=== PATIENT | female | born 1940 | race Caucasian/White ===

== ENCOUNTER 2017-01-05 18:02 | Inpatient (IN) | payer MEDICARE, BC ==
[2017-01-05] VITALS (7 sets, daily range): BP systolic 139–186; BP diastolic 65–81; PULSE 71–90; RESP 12–20; TEMP 97.4; O2SAT 96–99
[~2017-01-05] VITALS: Ht 157.5 cm; Wt 55.8 kg
[2017-01-05] MEDS ORDERED: LEVO.125 PO (18:26)
[2017-01-05] MEDS ORDERED: SODIUM CHLORIDE 0.9% FLUSH 10 ML FLUSH IVF PRN (18:45)
--- NOTE | 2017-01-05 18:53 | PD ---
HPI Chief Complaint: Neuro Symptoms/ Deficits Time Seen by Provider: 18:39 Travel History International Travel<30 days: No Contact w/Intl Traveler<30days: No Traveled to known affect area: No History of Present Illness HPI This is a 76-year-old female with history of renal cancer, who reports she is in remission, who presents here from [place] yesterday with complaints of left eye pain and droopy eyelid. Patient also reports weakness in her bilateral upper and lower extremities. The patient states the symptoms started yesterday when she was on the plane. She reports previous history of left lower extremity DVT. She states she has pain in her left lower extremity like she did when she had her DVT. She denies any chest pain, chest pressure. No abdominal pain, nausea vomiting. She is here with her friends from [place] who report that she was in pain all night. There are no other complaints time my examination. PFSH Past Medical History Cancer: Yes (KIDNEY) Chemotherapy: Yes Diminished Hearing: No Deep Vein Thrombosis: Yes (LEFT LEG BLOOD CLOT) Thyroid Disease: Yes : 4 Para: 4 Past Surgical History Eye Surgery: Yes (CATARACTS REMOVED) Oral Surgery: Yes (TEETH REMOVED) Other Surgery: Yes (RIGHT CHEST PORT) Social History Alcohol Use: Yes (OCCASSIONAL) Tobacco Use: No Substance Use: No Allergies-Medications (Allergen,Severity, Reaction): Coded Allergies: No Known Allergies (Unverified , 01/05/17) Reported Meds & Prescriptions Reported Meds & Active Scripts Active Reported Synthroid (Levothyroxine Sodium) 125 Mcg Tab 125 Mcg PO DAILY Review of Systems Except as stated in HPI: all other systems reviewed are Neg General / Constitutional: No: Fever, Chills Eyes: Positive: Drainage (left eye), Redness, Tearing, Visual changes ( blurriness), No: Blurred Vision, Photophobia, Foreign Body Sensation, Pain HENT: No: Headaches, Neck Pain Cardiovascular: No: Chest Pain or Discomfort, Palpitations Respiratory: No: Cough, Shortness of Breath Gastrointestinal: No: Nausea, Vomiting, Abdominal Pain Musculoskeletal: Positive: Weakness (and realized), Pain (pain in left lower extremity. Patient reports tingling sensation in her bilateral hands and feet.) Neurologic: Positive: Weakness (generalized), Other (left upper facial droop), No: Dizziness, Headache, Change in Mentation, Sensory Disturbance Physical Exam Narrative GENERAL: Well-developed female in no acute respiratory distress. The patient has obvious left lid lag. Patient also has left upper forehead droop. SKIN: Focused skin assessment warm/dry. HEAD: Atraumatic. Normocephalic. EYES: Pupils equal and round. Left eye injection. ENT: No nasal bleeding or discharge. Mucous membranes pink and moist. NECK: Trachea midline. No JVD. Supple CARDIOVASCULAR: Regular rate and rhythm. No murmur appreciated. RESPIRATORY: No accessory muscle use. Clear to auscultation. Breath sounds equal bilaterally. GASTROINTESTINAL: Abdomen soft, non-tender, nondistended. MUSCULOSKELETAL: No obvious deformities. No clubbing. No cyanosis. No edema. Subjective left calf tenderness. I do not appreciate any swelling. I do not appreciate any palpable cords. NEUROLOGICAL: Awake and alert. Left upper forehead droop and left eye droop. Motor grossly within normal limits. Normal speech. PSYCHIATRIC: Appropriate mood and affect; insight and judgment normal. Data Data Last Documented VS Vital Signs Date Time Temp Pulse Resp B/P Pulse Ox O2 Delivery O2 Flow Rate FiO2 01/05/17 18:32 75 12 186/81 97 Room Air 01/05/17 18:03 97.4 Orders Electrocardiogram (01/05/17 ) Complete Blood Count With Diff (01/05/17 18:39) Comprehensive Metabolic Panel (01/05/17 18:39) Urinalysis - C+S If Indicated (01/05/17 18:39) Chest, Single Ap (01/05/17 18:39) Ecg Monitoring (01/05/17 18:39) Iv Access Insert/Monitor (01/05/17 18:39) Oximetry (01/05/17 18:39) Sodium Chloride 0.9% Flush (Ns Flush) (01/05/17 18:45) Us Leg Venous Doppler (01/05/17 18:39) Ct Brain W/O Iv Contrast(Rout) (01/05/17 18:39) MDM Medical Decision Making Medical Screen Exam Complete: Yes Emergency Medical Condition: Yes Differential Diagnosis CVA versus Lindsey's palsy versus conjunctivitis versus left lower extremity DVT. Narrative Course 76-year-old female with history of renal cancer that she reportedly in remission , presents with left sided upper facial droop. Patient also has pain and tingling in her extremities. She also reports worsening pain in her left calf. Patient has a history of previous DVT in that lower extremity. CT scan, labs , ultrasound are all pending at this time. The patient will be signed out to Dr. Ebenezer Winters, physician replacing this physician, who will make the appropriate disposition. Diagnosis Primary Impression: left sided upper facial droop Additional Impressions: Left leg pain history of renal cancer Crow Corrales MD January 05, 2017 18:53
[2017-01-05 19:19] LABS: AUTOMATED NEUTROPHIL # 2.6 TH/MM3 (1.8-7.7); BASOPHIL % 0.6 % (0.0-2.0); EOSINOPHIL % 0.4 % (0.0-4.0); HEMATOCRIT 27.6 % (35.0-46.0); LYMPH % 7.6 % (9.0-44.0); LYMPHOCYTE # 0.2 TH/MM3 (1.0-4.8); MEAN CELL VOLUME 110.3 FL (80.0-100.0); MEAN CORPUSCULAR HEMOGLOBIN 37.2 PG (27.0-34.0); MEAN CORPUSCULAR HGB CONC 33.7 % (32.0-36.0); MONO % 11.8 % (0.0-8.0); NEUT % 79.6 % (16.0-70.0); RED CELL DISTRIBUTION WIDTH 24.2 % (11.6-17.2); WHITE BLOOD COUNT 3.3 TH/MM3 (4.0-11.0)
--- NOTE | 2017-01-05 19:24 | RADRPT ---
EXAM DATE/TIME: 01/05/2017 19:02 [facility] COMPARISON: No previous studies available for comparison. INDICATIONS : Left eye droop. RADIATION DOSE: 35.68 CTDIvol (mGy) MEDICAL HISTORY : Deep venous thrombosis. Renal carcinoma SURGICAL HISTORY : None. ENCOUNTER: Initial ACUITY: 1 day PAIN SCALE: 0/10 LOCATION: cranial TECHNIQUE: Multiple contiguous axial images were obtained of the head. Using automated exposure control and adj ustment of the mA and/or kV according to patient size, radiation dose was kept as low as reasonably a chievable to obtain optimal diagnostic quality images. FINDINGS: CEREBRUM: Atrophy. The ventricles are normal for age. No evidence of midline shift, mass lesion, hemorrhage or acute infarction. No extra-axial fluid collections are seen. POSTERIOR FOSSA: The cerebellum and brainstem are intact. The 4th ventricle is midline. The cerebellopontine angle i s unremarkable. EXTRACRANIAL: The visualized portion of the orbits is intact. SKULL: The calvaria is intact. No evidence of skull fracture. CONCLUSION: No acute disease. Tyrone Alarcon Jr., MD on January 05, 2017 at 19:22 Board Certified Radiologist. This report was verified electronically.
[2017-01-05 19:26] LABS: HEMO FLAGS AUTO DIFF
--- NOTE | 2017-01-05 19:27 | RADRPT ---
EXAM DATE/TIME: 01/05/2017 19:12 [facility] COMPARISON: No previous studies available for comparison. INDICATIONS : Chest discomfort, left facial droop today MEDICAL HISTORY : Renal cell carcinoma. SURGICAL HISTORY : Infusaport ENCOUNTER: Initial ACUITY: 1 day PAIN SCORE: 0/10 LOCATION: Bilateral chest FINDINGS: A single view of the chest demonstrates the lungs to be symmetrically aerated without evidence of mas s, infiltrate or effusion. The cardiomediastinal contours are unremarkable. Osseous structures are intact. A Port-A-Cath overlies the right chest. CONCLUSION: No acute disease. Tyrone Alarcon Jr., MD on January 05, 2017 at 19:25 Board Certified Radiologist. This report was verified electronically.
[2017-01-05 19:56] LABS: PLATELET COUNT 75 TH/MM3 (150-450); SCAN/DIFF AUTO DIFF CONFIRMED
[2017-01-05 19:58] LABS: ALKALINE PHOSPHATASE 86 U/L (45-117); ALT (GPT) 22 U/L (10-53); ANION GAP 9 MEQ/L (5-15); AST (GOT) 31 U/L (15-37); BICARBONATE 26.3 MEQ/L (21.0-32.0); BLOOD UREA NITROGEN 12 MG/DL (7-18); CHLORIDE 104 MEQ/L (98-107); GLOMERULAR FILTRATION RATE 97 ML/MIN (>89); POTASSIUM 3.6 MEQ/L (3.5-5.1); SODIUM (NA) 139 MEQ/L (136-145); TOTAL BILIRUBIN ADULT 0.8 MG/DL (0.2-1.0)
--- NOTE | 2017-01-05 20:54 | RADRPT ---
EXAM DATE/TIME: 01/05/2017 20:20 [facility] COMPARISON: No previous studies available for comparison. INDICATIONS : Left leg edema. MEDICAL HISTORY : . Deep venous thrombosis. Thyroid disease. Renal carcinoma. Chemotherapy. SURGICAL HISTORY : Right chest port. ENCOUNTER: Initial ACUITY: 1 day PAIN SCORE: 0/10 LOCATION: Left leg. TECHNIQUE: Venous ultrasound of the leg was performed from the inguinal ligament to the proximal calf. Real-mik e, color Doppler and spectral tracing, compression and augmentation techniques were used. FINDINGS: There is normal compressibility of the deep venous system from the inguinal region to the proximal ca lf. No echogenic clot is seen in the lumen of the common femoral, femoral, popliteal, and posterior tibial veins. There is a normal response of the venous system to proximal and distal augmentation an d respiration. Within the popliteal fossa there is a 4.1 x 1.4 x 0.5 cm cystic structure. It is simple in appearance . CONCLUSION: 1. No DVT. 2. 4 cm Infante's cyst. Tyrone Alarcon Jr., MD on January 05, 2017 at 20:50 Board Certified Radiologist. This report was verified electronically.
--- NOTE | 2017-01-05 21:35 | PD ---
Physical Exam Time Seen by Provider: 21:[address] Corrales left this patient for me to check the ultrasound and CT scan and make a dispositionlikely admission. Data Data Last Documented VS Vital Signs Date Time Temp Pulse Resp B/P Pulse Ox O2 Delivery O2 Flow Rate FiO2 01/05/17 20:53 84 18 171/74 96 Room Air 01/05/17 18:03 97.4 Orders Electrocardiogram (01/05/17 ) Complete Blood Count With Diff (01/05/17 18:39) Comprehensive Metabolic Panel (01/05/17 18:39) Urinalysis - C+S If Indicated (01/05/17 18:39) Chest, Single Ap (01/05/17 18:39) Ecg Monitoring (01/05/17 18:39) Iv Access Insert/Monitor (01/05/17 18:39) Oximetry (01/05/17 18:39) Sodium Chloride 0.9% Flush (Ns Flush) (01/05/17 18:45) Us Leg Venous Doppler (01/05/17 18:39) Ct Brain W/O Iv Contrast(Rout) (01/05/17 18:39) Admit Order (Ed Use Only) (01/05/17 21:28) Labs Laboratory Tests Test 01/05/17 18:40 White Blood Count 3.3 TH/MM3 Red Blood Count 2.50 MIL/MM3 Hemoglobin 9.3 GM/DL Hematocrit 27.6 % Mean Corpuscular Volume 110.3 FL Mean Corpuscular Hemoglobin 37.2 PG Mean Corpuscular Hemoglobin 33.7 % Concent Red Cell Distribution Width 24.2 % Platelet Count 75 TH/MM3 Mean Platelet Volume 7.6 FL Neutrophils (%) (Auto) 79.6 % Lymphocytes (%) (Auto) 7.6 % Monocytes (%) (Auto) 11.8 % Eosinophils (%) (Auto) 0.4 % Basophils (%) (Auto) 0.6 % Neutrophils # (Auto) 2.6 TH/MM3 Lymphocytes # (Auto) 0.2 TH/MM3 Monocytes # (Auto) 0.4 TH/MM3 Eosinophils # (Auto) 0.0 TH/MM3 Basophils # (Auto) 0.0 TH/MM3 CBC Comment AUTO DIFF Differential Comment AUTO DIFF CONFIRMED Sodium Level 139 MEQ/L Potassium Level 3.6 MEQ/L Chloride Level 104 MEQ/L Carbon Dioxide Level 26.3 MEQ/L Anion Gap 9 MEQ/L Blood Urea Nitrogen 12 MG/DL Creatinine 0.60 MG/DL Estimat Glomerular Filtration 97 ML/MIN Rate Random Glucose 95 MG/DL Calcium Level 9.3 MG/DL Total Bilirubin 0.8 MG/DL Aspartate Amino Transf 31 U/L (AST/SGOT) Alanine Aminotransferase 22 U/L (ALT/SGPT) Alkaline Phosphatase 86 U/L Total Protein 5.9 GM/DL Albumin 3.4 GM/DL [facility] Medical Record Reviewed: Yes Supervised Visit with ROD: Yes Differential Diagnosis Ischemic CVA, Ilndsey's palsy, deep vein thrombosis, electrolyte disorder Narrative Course There is no evidence of deep vein thrombosis, the patient likely has an ischemic CVA. Plan: The patient will be admitted and MRI of the brain done. The patient will be admitted to Dr. Diaz. Physician Communication Physician Communication I discussed the patient with Dr. Hayward who instructed me to admit the patient to Dr. Diaz. Diagnosis Primary Impression: left sided upper facial droop Additional Impressions: Left leg pain history of renal cancer Admitting Information Admitting Physician Requests: Admit Ebenezer Winters MD January 05, 2017 21:35
--- NOTE | 2017-01-05 21:50 | HHI.HP ---
[facility] Service Family Medicine Primary Care Physician Non-Staff Admission Diagnosis ischemic CVA Diagnoses: Chief Complaint: left eye droop International Travel<30 Days: No Contact w/Intl Traveler<30days: No History of Present Illness 76 y/o female with history of renal cancer and hypothyroidism presents with left facial droop. Pt lives in [place] and was flying here to visit a friend yesterday evening. She states towards the end of the flight, she was going to read, but noticed that she had difficulty seeing. When she landed, she noticed that her left eyelid was drooping as well as her forehead. This occurred around 6 or 7 PM last night. She endorses some achiness on her left eye after moving around. But no eye pain. He can also noticed some weakness and achiness in her left arm. She's been having some left leg pain off and on, but that has been going on for a couple weeks. He also had a history of numbness/ tingling in her toes and fingers that has been going on for a couple weeks as well. She denies any problems with walking. Denies any headaches. Currently, her left eyelid is over her left eye and she states she is unable to see. If she lifts her left eyelid up, she is able to see normally. No blurry vision. No trouble with speech. History of stroke or TIA symptoms in the past. Not lose consciousness. Denies any recent illnesses, fever/chills. No history of tick exposure. Denies any history of A. fib or heart disease. Does have a history of hypothyroidism. Had some vomiting this morning after eating food, since and has not had much of an appetite has been sleeping most of the day. Does have a history of renal cancer on the right side, unsure of the name of it. She is status post 6 chemotherapy treatments, no radiation. Patient states she had just received remission status last week per (Brad España MD R1) Review of Systems Constitutional: COMPLAINS OF: Night Sweats, DENIES: Diaphoretic episodes, Fever, Chills, Dizziness Eyes: COMPLAINS OF: Eye pain, DENIES: Vision loss, Double Vision Ears, nose, mouth, throat: DENIES: Hearing loss, Vertigo, Running Nose Respiratory: DENIES: Cough, Sputum production, Shortness of breath Cardiovascular: DENIES: Chest pain, Palpitations, Syncope, Dyspnea on Exertion , Lower Extremity Edema Gastrointestinal: COMPLAINS OF: Nausea, Vomiting, DENIES: Abdominal pain, Black stools, Bloody stools, Constipation, Diarrhea, Difficulty Swallowing Genitourinary: DENIES: Urgency, Dysuria Musculoskeletal: DENIES: Joint pain, Muscle aches Integumentary: DENIES: Abnormal pigmentation, Rash Hematologic/lymphatic: DENIES: Bruising, Lymphadenopathy Immunologic/allergic: DENIES: Eczema Neurologic: COMPLAINS OF: Localized weakness, DENIES: Abnormal gait, Headache , Paresthesias, Seizures, Tremor, Poor Balance Psychiatric: DENIES: Anxiety, Confusion, Mood changes (Brad España MD R1) Past Family Social History Past Medical History Renal cancer Hypothyroidism Past Surgical History Cataract surgery Reported Medications Reported Meds & Active Scripts Active Reported Synthroid (Levothyroxine Sodium) 125 Mcg Tab 125 Mcg PO DAILY (Brad España MD R1) Allergies: Coded Allergies: No Known Allergies (Unverified , 01/05/17) Active Ordered Medications Active Medications Sodium Chloride (NS Flush) 2 ml UNSCH PRN IVF; Start 01/05/17 at 18:45 Family History Mother-uterine cancer Father-DM Sister-lung cancer Social History [employer] job Quit 30 years ago smoking Alcohol occasionally Denies illicit drug use (Brad España MD R1) Physical Exam Vital Signs Vital Signs Date Time Temp Pulse Resp B/P Pulse Ox O2 Delivery O2 Flow Rate FiO2 01/05/17 20:53 84 18 171/74 96 Room Air 01/05/17 20:04 76 18 139/65 99 Room Air 01/05/17 18:51 97 Room Air 01/05/17 18:32 75 12 186/81 97 Room Air 01/05/17 18:03 97.4 90 20 143/69 97 Room Air Physical Exam GENERAL: This is a well-nourished, well-developed patient, in no apparent distress. SKIN: No rashes, ecchymoses or lesions. Cool and dry. HEAD: Atraumatic. Normocephalic. No temporal or scalp tenderness. EYES: Pupils equal round and reactive. Left eyelid droop over eye. Ocular movements intact. Left forehead droop. ENT: Throat without erythema, tonsillar hypertrophy or exudate. Uvula midline. Airway patent. NECK: Trachea midline. No JVD or lymphadenopathy. Supple, nontender. CARDIOVASCULAR: Regular rate and rhythm without murmurs, gallops, or rubs. RESPIRATORY: Clear to auscultation. Breath sounds equal bilaterally. No wheezes , rales, or rhonchi. GASTROINTESTINAL: Abdomen soft, non-tender, nondistended. No hepato-splenomegaly , or palpable masses. No guarding. MUSCULOSKELETAL: Extremities without clubbing, cyanosis, or edema. No joint tenderness, effusion, or edema noted. No calf tenderness. NEUROLOGICAL: Awake and alert, orientedx3. Speech fluent, no dysarthria or dysphasia. Left forehead and left eyelid droop. Otherwise, all other cranial nerves intact. No tongue deviation. 5/5 strength and sensation intact bilaterally in UE and LE. Reflexes intact. Heel to laguna normal. Short term memory intact. No neglect. Laboratory Laboratory Tests Test 01/05/17 18:40 White Blood Count 3.3 Red Blood Count 2.50 Hemoglobin 9.3 Hematocrit 27.6 Mean Corpuscular Volume 110.3 Mean Corpuscular Hemoglobin 37.2 Mean Corpuscular Hemoglobin 33.7 Concent Red Cell Distribution Width 24.2 Platelet Count 75 Mean Platelet Volume 7.6 Neutrophils (%) (Auto) 79.6 Lymphocytes (%) (Auto) 7.6 Monocytes (%) (Auto) 11.8 Eosinophils (%) (Auto) 0.4 Basophils (%) (Auto) 0.6 Neutrophils # (Auto) 2.6 Lymphocytes # (Auto) 0.2 Monocytes # (Auto) 0.4 Eosinophils # (Auto) 0.0 Basophils # (Auto) 0.0 CBC Comment AUTO DIFF Differential Comment AUTO DIFF CONFIRMED Sodium Level 139 Potassium Level 3.6 Chloride Level 104 Carbon Dioxide Level 26.3 Anion Gap 9 Blood Urea Nitrogen 12 Creatinine 0.60 Estimat Glomerular Filtration 97 Rate Random Glucose 95 Calcium Level 9.3 Total Bilirubin 0.8 Aspartate Amino Transf 31 (AST/SGOT) Alanine Aminotransferase 22 (ALT/SGPT) Alkaline Phosphatase 86 Total Protein 5.9 Albumin 3.4 (Brad España MD R1) Result Diagram: 01/05/17183901/05/171839 Imaging Last Impressions Lower Extremity Ultrasound 01/05/17 183 Signed Impressions: Service Date/Time: Thursday, January 05, 2017 20:20 - CONCLUSION: 1. No DVT. 2. 4 cm Infante's cyst. Tyrone Alarcon Jr., MD Head CT 01/05/171838 Signed Impressions: Service Date/Time: Thursday, January 05, 2017 19:02 - CONCLUSION: No acute disease. Tyrone Alarcon Jr., MD Chest X-Ray 01/05/171838 Signed Impressions: Service Date/Time: Thursday, January 05, 2017 19:12 - CONCLUSION: No acute disease. Tyrone Alarcon Jr., MD (Brad España MD R1) Assessment and Plan Assessment and Plan 76 y/o female with history of renal cancer presents with left facial droop. Possible ischemic stroke vs Lindsey's palsy. Will admit for stroke workup. Code Status Full Discussed Condition With Dr. Hayward (Brad España MD R1) Attending Attestation THIS CASE WAS DISCUSSED WITH THE RESIDENT PHYSICIANS. I HAVE REVIEWED THE RECORD AND AGREE WITH THE ABOVE NOTE AND PLAN OF CARE WAS DISCUSSED. I HAVE AUTHORIZED THE ORDER FOR ADMISSION TO AN IN-PATIENT STATUS. (Marito Diaz MD) Problem List: (1) Facial droop Status: Acute Plan: Symptoms first began over 24 hours ago. Vascular risk factors include age , history of smoking, cancer. DDx: Ischemic CVA, Lindsey's palsy, metabolic abnormality, metastasis Pertinant PE findings include: Left forehead and eyelid droop. Otherwise, cranial nerves intact. Strength and sensation is equal bilaterally CT was negative for bleeding. Lower extremity ultrasound: Negative for DVT CXR: Acute disease -MRI brain stat to r/o ischemic stroke. -2D ECHO orderd for the AM to look for potential wall vegetations. -Start Aspirin 325mg daily -Start atorvastatin daily. -Neuro checks q4 hrs. -Telemetry -HOB flat for 12 hrs -Bedrest with fall precautions. -Consult neurology, appreciate recs -Consult PT -If pt passes bedside swallow, will allow for heart healthy diet. -ACS rule-out with trending troponins/EKGs (2) Renal cancer Status: Acute Plan: History of right-sided renal cancer. Unsure of pathology. Patient is status post 6 chemotherapy treatments. Patient states she wishes notified of her remission last week. CBC abnormalities most likely related to chemotherapy. -Continue to monitor -CBC in am (3) FEN Status: Acute Plan: Fluids: none Electrolytes: wnl, continue to monitor Nutrition: NPO until after swallow study DVT ppx: lovenox Hypothyroidism - continue Synthroid. TSH pending (Brad España MD R1) Physician Certification 2 Midnight Certification Type: Admission for Inpatient Services Order for Inpatient Services The services are ordered in accordance with Medicare regulations or non- Medicare payer requirements, as applicable. In the case of services not specified as inpatient-only, they are appropriately provided as inpatient services in accordance with the 2-midnight benchmark. Estimated LOS (days): 2 days is the estimated time the patient will need to remain in the hospital, assuming treatment plan goals are met and no additional complications. Post-Hospital Plan: Home (Brad España MD R1) Problem Qualifiers (1) Renal cancer: Qualified Code: C64.1 - Renal cancer, right Brad España MD R1 January 05, 2017 21:50 Marito Diaz MD January 06, 2017 14:10
[2017-01-05] MEDS ORDERED: SODIUM CHLORIDE 0.9% FLUSH 5 ML FLUSH IV FLUSH PRN (22:15)
[2017-01-05] MEDS ORDERED: GLUCAGON 1 MG/ML VIAL OTHER PRN (22:15)
[2017-01-05] MEDS ORDERED: DEXTROSE 50% IN WATER 50 ML VIAL(D50) IV PUSH PRN (22:15)
[2017-01-05] MEDS ORDERED: ACETAMINOPHEN 325 MG TAB PO PRN (22:30)
[2017-01-05] MEDS ORDERED: ONDANSETRON HCL 4 MG/2 ML VIAL IV PRN (22:30)
[2017-01-05] MEDS ORDERED: ENOXAPARIN SODIUM 40 MG/0.4 ML SYRINGE SQ SCH (23:00)
--- NOTE | 2017-01-05 23:37 | RADRPT ---
EXAM DATE/TIME: 01/05/2017 22:41 [facility] COMPARISON: No previous studies available for comparison. INDICATIONS : Cerebrovascular accident. MEDICAL HISTORY : Deep venous thrombosis. . Thyroid disease. Renal carcinoma. SURGICAL HISTORY : Right chest port. Cataract removal. ENCOUNTER: Initial ACUITY: 1 day PAIN SCORE: 4/10 LOCATION: Bilateral neck PEAK SYSTOLIC VELOCITIES (cm/sec): ICA/CCA RATIO: Right: 1.4 Left: 1.1 ICA: Right: 158 Left: 108 CCA: Right: 111 Left: 99 ECA: Right: 94 Left: 110 VERTEBRAL: Right: 86 antegrade Left: 55 antegrade Elevated flow velocities and ICA/CCA ratios have been found to correlate with increased degrees of vessel stenosis, calculated as percentage of diameter relative to a normal segment of distal ICA/CCA FINDINGS: RIGHT CAROTID: No significant stenosis is visualized. The waveforms are within normal limits. LEFT CAROTID: No significant stenosis is visualized. The waveforms are within normal limits. VERTEBRAL ARTERIES: Antegrade flow is seen in both vertebral arteries. MISCELLANEOUS: None. CONCLUSION: Normal examination. Cm Lopez MD on January 05, 2017 at 23:36 Board Certified Radiologist. This report was verified electronically.
[2017-01-05] MEDS ORDERED: GADODIAMIDE PF 287 MG/ML 5 ML VIAL (for RAD MRI) IV ONE (23:59)
[2017-01-06] VITALS (9 sets, daily range): BP systolic 165–189; BP diastolic 77–82; PULSE 73–84; RESP 18–22; TEMP 96.2–98.3; O2SAT 96–100
--- NOTE | 2017-01-06 00:16 | RADRPT ---
EXAM DATE/TIME: 01/05/2017 23:32 [facility] COMPARISON: No previous studies available for comparison. INDICATIONS : CVA. Left facial droop. CONTRAST: 12 cc Omniscan (gadodiamide) IV MEDICAL HISTORY : Carcinoma, renal. SURGICAL HISTORY : IVC Filter placement. Port. Cataracts. ENCOUNTER: Subsequent ACUITY: 2 day PAIN SCORE: 3/10 LOCATION: cranial TECHNIQUE: Multiplanar, multisequence MRI of the brain was performed both prior to and following the administrat ion of paramagnetic contrast. FINDINGS: CEREBRUM: The ventricles are normal for age. No evidence of midline shift, mass lesion, hemorrhage or acute in farction. No extraaxial fluid collections are seen. The pituitary gland and suprasellar cistern are normal in configuration. WHITE MATTER: Mild increased signal in periventricular white matter. No evidence of an acute stroke POSTERIOR FOSSA: The cerebellum and brainstem are intact. The 4th ventricle is midline. The cerebellopontine angle is unremarkable. The cerebellar tonsils are normal in position. DIFFUSION IMAGING: No focal areas of restricted diffusion are seen. No evidence of acute infarction. EXTRACRANIAL: The visualized portions of the orbits and paranasal sinuses are unremarkable. POST-CONTRAST: No abnormal areas of parenchymal or dural enhancement. No evidence of blood-brain barrier breakdown. CONCLUSION: Mild atrophic change. No evidence of acute stroke, mass, mass effect or evidence of any hemorrhage. The diffusion weighted sequences are normal i.e. no acute stroke Cm Lopez MD on January 06, 2017 at 0:13 Board Certified Radiologist. This report was verified electronically.
[2017-01-06 02:28] LABS: APTT (PATIENT) 27.9 SEC (24.3-30.1)
[2017-01-06 03:02] LABS: BACTERIA, URINE OCC /hpf; BLOOD, URINE NEG (NEG); COMMENT (UR) CATH-CULTURE IND; CULTURE IF INDICATED CATH CULTURE IND; GLUCOSE,URINE NEG (NEG); KETONE, URINE 40 mg/dL (NEG); NITRITE,URINE NEG (NEG); PH, URINE 6.5 (5.0-8.5); URINE COLOR YELLOW (YELLW/STRAW)
[2017-01-06] MEDS: LEVOTHYROXINE SODIUM 125 MCG TAB PO SCH (06:01)
[2017-01-06] MEDS: INSULIN ASPART SUPPLEMENTAL SCALE SQ SCH ×4 (06:01→20:49)
--- NOTE | 2017-01-06 08:04 | HHI.FPPN ---
Subjective Remarks FM Attending Note: Patient seen and examined. S: Chart and all resident physician notes reviewed. In summary this is a 76 year old female who was admitted with an admission diagnosis of possible Cva. This patient has renal cell carcinoma and just completed a treatment course of chemotherapy. To celebrate she was in the process of flying to [place] to visit a friend. While on the plane she started noticing some drooping of the eyelid on her left eye. When she got off the plane she notes some difficulty carrying luggage in her left hand although did not have complete weakness. Also noted some slight unsteadiness on her left leg. This patient is right handed. This morning her symptoms are persisting but no other changes have been noted. No headache has been noted. No previous vascular disease has been noted. Objective Vitals Vital Signs Date Time Temp Pulse Resp B/P Pulse Ox O2 Delivery O2 Flow Rate FiO2 01/06/17 04:00 97.1 75 22 167/77 97 01/06/17 00:30 97.7 73 18 177/77 98 01/05/17 23:02 71 18 161/71 97 Room Air 01/05/17 21:46 77 18 169/73 98 Room Air 01/05/17 20:53 84 18 171/74 96 Room Air 01/05/17 20:04 76 18 139/65 99 Room Air 01/05/17 18:51 97 Room Air 01/05/17 18:32 75 12 186/81 97 Room Air 01/05/17 18:03 97.4 90 20 143/69 97 Room Air I/O 01/05/17 01/05/17 01/05/17 01/06/17 01/06/17 01/06/17 07:00 15:00 23:00 07:00 15:00 23:00 Intake Total 690 ml Balance 690 ml Intake Oral 690 ml # Voids 2 # Bowel Movements 0 Result Diagram: 01/05/17 1840 01/05/17 1840 Other Results Item Value Date Time Erythrocyte Sedimentation Rate 21 mm/hr 01/06/17 0815 Troponin I 0.24 NG/ML H 01/06/17 0815 Troponin I 0.22 NG/ML H 01/06/17 0156 Triglycerides Level 81 MG/DL 01/06/17 0815 Cholesterol Level 176 MG/DL 01/06/17 0815 LDL Cholesterol 93 MG/DL 01/06/17 0815 HDL Cholesterol 66.9 MG/DL H 01/06/17 0815 Cholesterol/HDL Ratio 2.63 RATIO 01/06/17 0815 Thyroid Stimulating Hormone 3rd Gen 1.580 uIU/ML 01/06/17 0815 Total Protein 5.9 GM/DL L 01/05/17 1840 Albumin 3.4 GM/DL 01/05/17 1840 Urine Specific [place] 1.017 01/06/17 0230 Urine Ketones 40 mg/dL H 01/06/17 0230 Urine Nitrite NEG 01/06/17 0230 Urine Leukocyte Esterase NEG 01/06/17 0230 EKG review is normal. Imaging Last 48 hours Impressions Head Magnetic Resonance Angiography 01/06/17 0948 Signed Impressions: Service Date/Time: Friday, January 06, 2017 10:37 - CONCLUSION: No acute intracranial vascular abnormality is identified. Benji Rogers MD Cervical Spine MRI 01/06/17 0000 Signed Impressions: Service Date/Time: Friday, January 06, 2017 10:37 - CONCLUSION: Mild degenerative change of the cervical spine with degenerative disc disease at C3-C4 through C6-C7. However, no spinal canal stenosis is visualized. There is mild right neural foraminal narrowing at C4-C5. Benji Rogers MD Brain MRI 01/05/17 2228 Signed Impressions: Service Date/Time: Thursday, January 05, 2017 23:32 - CONCLUSION: Mild atrophic change. No evidence of acute stroke, mass, mass effect or evidence of any hemorrhage. The diffusion weighted sequences are normal i.e. no acute stroke Cm Lopez MD Lower Extremity Ultrasound 01/05/171838 Signed Impressions: Service Date/Time: Thursday, January 05, 2017 20:20 - CONCLUSION: 1. No DVT. 2. 4 cm Infante's cyst. Tyrone Alarcon Jr., MD Head CT 01/05/171838 Signed Impressions: Service Date/Time: Thursday, January 05, 2017 19:02 - CONCLUSION: No acute disease. Tyrone Alarcon Jr., MD Chest X-Ray 01/05/171838 Signed Impressions: Service Date/Time: Thursday, January 05, 2017 19:12 - CONCLUSION: No acute disease. Tyrone Alarcon Jr., MD Carotid Artery Ultrasound 01/05/17 0000 Signed Impressions: Service Date/Time: Thursday, January 05, 2017 22:41 - CONCLUSION: Normal examination. Cm Lopez MD Objective Remarks O. CONSTITUTIONAL/GEN: normally nourished, in NAD. EYES: conjunctiva normal, PERRLA, EOMI. ENT: Mouth and pharynx normal. NECK: thyroid midline, carotids symmetrical. LUNGS: clear A-P, respiratory effort is normal. CARDIOVASCULAR: RR without murmur or gallop. No significant edema. GI/ABD: soft without masses, without organomegaly. NEURO: weakness of the left orbicularis oculi muscle. Some mild weakness of the left forehead, but not a complete palsy. No motor weakness of left arm or leg noted on bedside testing. SKIN: color normal, no rashes noted. Alopecia. HEME/LYMPH: no bruising, petechia or significant adenopathy MUSC: back is normal in appearance. Extremities are normal in appearance. PSYCH/MENTAL STATUS: Alert and oriented x 3. A/P Assessment and Plan 76 y/o female with history of renal cancer presents with left facial droop. Possible ischemic stroke vs Lindsey's palsy. Will admit for stroke workup. Problem List: (1) Facial droop Status: Acute Plan: Symptoms first began over 24 hours ago. Vascular risk factors include age , history of smoking, cancer. DDx: Ischemic CVA, Lindsey's palsy, metabolic abnormality, metastasis Pertinant PE findings include: Left forehead and eyelid droop. Otherwise, cranial nerves intact. Strength and sensation is equal bilaterally CT was negative for bleeding. Lower extremity ultrasound: Negative for DVT CXR: Acute disease -MRI brain stat to r/o ischemic stroke. -2D ECHO orderd for the AM to look for potential wall vegetations. -Start Aspirin 325mg daily -Start atorvastatin daily. -Neuro checks q4 hrs. -Telemetry -HOB flat for 12 hrs -Bedrest with fall precautions. -Consult neurology, appreciate recs -Consult PT -If pt passes bedside swallow, will allow for heart healthy diet. -ACS rule-out with trending troponins/EKGs 01/06/17 Left facial weakness of uncertain etiology. The findings are atypical. Neurology evaluation is pending. (2) Renal cancer Status: Acute Plan: History of right-sided renal cancer. Unsure of pathology. Patient is status post 6 chemotherapy treatments. Patient states she wishes notified of her remission last week. CBC abnormalities most likely related to chemotherapy. -Continue to monitor -CBC in am (3) FEN Status: Acute Plan: Fluids: none Electrolytes: wnl, continue to monitor Nutrition: NPO until after swallow study DVT ppx: lovenox Hypothyroidism - continue Synthroid. TSH pending Problem Qualifiers (1) Renal cancer: Qualified Code: C64.1 - Renal cancer, right Marito Diaz MD January 06, 2017 08:04
[2017-01-06 08:52] LABS: AUTOMATED NEUTROPHIL # 2.7 TH/MM3 (1.8-7.7); BASOPHIL % 0.2 % (0.0-2.0); EOSINOPHIL % 0.2 % (0.0-4.0); HEMATOCRIT 25.8 % (35.0-46.0); LYMPH % 6.9 % (9.0-44.0); LYMPHOCYTE # 0.2 TH/MM3 (1.0-4.8); MEAN CELL VOLUME 109.8 FL (80.0-100.0); MEAN CORPUSCULAR HEMOGLOBIN 36.7 PG (27.0-34.0); MEAN CORPUSCULAR HGB CONC 33.5 % (32.0-36.0); NEUT % 78.7 % (16.0-70.0); PLATELET COUNT 68 TH/MM3 (150-450); RED BLOOD COUNT 2.35 MIL/MM3 (4.00-5.30); RED CELL DISTRIBUTION WIDTH 23.3 % (11.6-17.2); WHITE BLOOD COUNT 3.4 TH/MM3 (4.0-11.0)
[2017-01-06 08:56] LABS: HEMO FLAGS AUTO DIFF
[2017-01-06] MEDS ORDERED: ASPIRIN 325 MG TAB PO SCH (09:00)
[2017-01-06] MEDS: SODIUM CHLORIDE 0.9% FLUSH 5 ML FLUSH IV FLUSH SCH ×2 (09:00→20:49)
[2017-01-06 09:14] LABS: ANION GAP 10 MEQ/L (5-15); BICARBONATE 25.8 MEQ/L (21.0-32.0); BLOOD UREA NITROGEN 13 MG/DL (7-18); CHLORIDE 103 MEQ/L (98-107); GLOMERULAR FILTRATION RATE 122 ML/MIN (>89); POTASSIUM 3.5 MEQ/L (3.5-5.1); SODIUM (NA) 139 MEQ/L (136-145)
[2017-01-06 09:19] LABS: HDL CHOLESTEROL 66.9 MG/DL (40.0-60.0)
[2017-01-06 09:39] LABS: PLATELET ESTIMATE SMEAR LOW (NORMAL); PLATELET MORPHOLOGY NORMAL (NORMAL); SCAN/DIFF AUTO DIFF CONFIRMED
[2017-01-06] MEDS ORDERED: GADODIAMIDE PF 287 MG/ML 5 ML VIAL (for RAD MRI) IV ONE (11:09)
--- NOTE | 2017-01-06 11:31 | RADRPT ---
EXAM DATE/TIME: 01/06/2017 10:37 [facility] COMPARISON: No previous studies available for comparison. INDICATIONS : Left facial droop. MEDICAL HISTORY : Carcinoma renal. SURGICAL HISTORY : IVC Filter placement. Port. Cataracts. ENCOUNTER: Initial ACUITY: 2 day PAIN SCORE: 0/10 LOCATION: Paraspinal Please note a normal MRA of the brain does not entirely exclude the possibility of a small aneurysm, nor the possibility of distal intracranial vessel disease. TECHNIQUE: 3D time of flight MRA was performed. Source images, multiplanar STS MIP, and 3D volume MIP reconstru ctions were reviewed. FINDINGS: Anterior circulation: The internal carotid arteries demonstrate no abnormality or atherosclerotic change. A1 segments and m ore distal anterior cerebral arteries are symmetric and within normal limits. The middle cerebral art ashley branches demonstrate symmetric flow related enhancement. No aneurysm or high-grade stenosis is id entified. Posterior circulation: There are patent posterior cerebral arteries bilaterally. Vertebral arteries are codominant. The basi lar artery and posterior cerebral arteries demonstrate no significant stenosis or abnormality. No ane urysm is visualized. CONCLUSION: No acute intracranial vascular abnormality is identified. Benji Rogers MD on January 06, 2017 at 11:25 Board Certified Radiologist. This report was verified electronically.
--- NOTE | 2017-01-06 11:47 | RADRPT ---
EXAM DATE/TIME: 01/06/2017 10:37 [facility] COMPARISON: No previous studies available for comparison. INDICATIONS : Left facial droop. CONTRAST: 12 cc Omniscan (gadodiamide) IV MEDICAL HISTORY : Carcinoma renal. SURGICAL HISTORY : IVC Filter placement. Port. Cataracts. ENCOUNTER: Initial ACUITY: 2 day PAIN SCORE: 0/10 LOCATION: cranial TECHNIQUE: Multiplanar, multisequence MRI examination of the cervical spine was performed. FINDINGS: VERTEBRAE: Normal vertebral body height. Bone marrow signal is within normal limits. ALIGNMENT: There is no anterolisthesis or retrolisthesis. CORD: Normal configuration and signal. POST FOSSA: The cerebellar tonsils are normal in position. POST-CONTRAST: No abnormal areas of enhancement are seen. The craniocervical junction and C1-C2 level demonstrate no abnormality. C2-C3: No disc herniation, canal stenosis, or neural foraminal stenosis. C3-C4: No disc herniation, canal stenosis, or neural foraminal stenosis. C4-C5: There is decreased disc height with endplate osteophytes anteriorly and diffuse posterior disc osteop hyte complex. There is no spinal canal stenosis. There is mild right neural foraminal narrowing. C5-C6: There is mild decreased disc height with central to left paracentral posterior disc osteophyte comple x abuts the anterior aspect of the spinal cord. No significant spinal canal stenosis or neural forami nal narrowing is present. C6-C7: There is mild decreased disc height with diffuse posterior disc osteophyte complex. No canal stenosis or neural foraminal stenosis is present. C7-T1: No disc herniation, canal stenosis, or neural foraminal stenosis. CONCLUSION: Mild degenerative change of the cervical spine with degenerative disc disease at C3-C4 through C6-C7. However, no spinal canal stenosis is visualized. There is mild right neural foraminal narrowing at C 4-C5. Benji Rogers MD on January 06, 2017 at 11:42 Board Certified Radiologist. This report was verified electronically.
--- NOTE | 2017-01-06 12:33 | MB ---
cc: ROXANNE VALDEZ DATE OF CONSULTATION: 01/06/2017. REASON FOR CONSULTATION: HISTORY OF PRESENT ILLNESS: A 76-year-old right-handed woman with a recent diagnosis in July of last year and chemotherapy since August several rounds of right kidney cancer, hypothyroidism. She does not take an aspirin a day. She has otherwise been healthy. On the of this month, she was on a plane and thought her left leg was aching. She felt like there was some weakness in the left arm and noticed that she had some droopy eye on the left side. No pain behind the ear on the left side. No change in her hearing. No major headache. She is not diabetic she tells me. She lives in [place] usually. ALLERGIES: NO KNOWN DRUG ALLERGIES. REVIEW OF SYSTEMS: Denies any hypertension, diabetes, hypercholesterolemia, myocardial infarction, CABG, stents, angioplasty, hepatic, or pulmonary disease, atrial fibrillation, coumadin, lupus, ulcer, cancer, seizure or stroke. SOCIAL HISTORY: Not a smoker. Occasional drink. Lives with her grandson. FAMILY HISTORY: Father with diabetes, positive for cancer, negative for seizure, negative for stroke. MEDICATIONS: She is currently on: 1. Lipitor. 2. Aspirin 325. 3. Lovenox. PHYSICAL EXAMINATION: VITAL SIGNS: Afebrile, 76, 19, 172/77. Blood pressures have been generally running high and has high as 186/81. NECK: There is a right carotid bruit. HEART: Regular rhythm. I do not detect a murmur. NEUROLOGICAL EXAMINATION: Her pupils are equal. The visual diaz are full. She has a left ptosis and inability to invert and also upward gaze in the left eye. Gaze to the left is normal in the left eye and extraocular movements intact in the right eye. Face is symmetric with normal sensation otherwise besides the ptosis. She can move her forehead well. Tongue was midline. There is no drift. She has normal strength in bilateral deltoids, triceps, biceps. Her FDI is weak about a 4/5, a little bit more on the left than the right. The APB is weak on the left about a 4/5, normal on the right. Finger extensors are weak bilaterally at 4/5. Lower extremity strength is normal bilaterally. Toes are downgoing bilaterally. DTRs are absent throughout. Pin prick was intact throughout including the face. Vibratory sense was diminished in the right foot only. She is not ataxic on [id number]. Speech is fluent. She is not aphasic. LABORATORY DATA: White count is 3.4, hematocrit 26, platelet count 68,000. Her urinalysis is negative. Basic metabolic profile was normal. Glucose was 85. Troponin 0.24. LDL cholesterol normal at 93. TSH normal. Coags are normal. IMAGING STUDIES: Carotid ultrasound was read as normal. Lower extremity ultrasound: no DVT. CT scan of the brain was read as negative. Chest x-ray is negative. MRI of the brain was read as normal. 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 Some white matter changes seen bilaterally. I do not see any masses around the left orbit. No infarct is seen. No definite metastasis noted. IMPRESSION: A left pupil-sparing III nerve palsy but also some weakness in bilateral finger extensors in her hands. PLAN AND RECOMMENDATIONS: 1. I have ordered an MRI of her cervical spine for the arm weakness. 2. She is not diabetic, which is a bit unusual. A carcinomatous meningitis could be considered and I think considering her recent cancer, we should do a lumbar puncture. 3. Hold her blood thinners since this is not stroke to the brain. 4. Check some additional labs. 5. Would hold her statin at this point. 6. I defer to the med team why her troponin is up. MD SEAN Ashby/RAUL /9:45 AM /12:20 PM
[2017-01-06 13:46] LABS: RHEUMATOID FACTOR TRIGGER LESS THAN 10.0 IU/ML (0.0-14.9)
[2017-01-06 13:47] LABS: ALT (GPT) 20 U/L (10-53); AST (GOT) 27 U/L (15-37)
[2017-01-06] MEDS: SODIUM CHLOR 0.9% 1000 ML INJ 1,000 ML IV SCH ×2 (14:10→23:08)
[2017-01-06 14:12] LABS: FREE T4 1.27 NG/DL (0.76-1.46)
[2017-01-06 14:24] LABS: CREATINE KINASE 40 U/L (26-192)
--- NOTE | 2017-01-06 15:47 | EKG ---
Date Performed: 01/05/2017 Time Performed: 18:20:36 PTAGE: 76 years EKG: Sinus rhythm NONSPECIFIC T-WAVE ABNORMALITY BORDERLINE ECG INTERPRETATION BASED ON A DEFAULT AGE OF 38 YEARS NO PREVIOUS TRACING DOCTOR: Zaid Martin Interpretating Date/Time 01/06/2017 15:46:23
--- NOTE | 2017-01-06 15:47 | EKG ---
Date Performed: 01/06/2017 Time Performed: 09:49:29 PTAGE: 76 years EKG: Sinus rhythm NORMAL ECG Since PREVIOUS TRACING 01/05/2017, ST changes have improved. PREVIOUS TRACIN01/05/2017 18.2 0 DOCTOR: Zaid Martin Interpretating Date/Time 01/06/2017 15:46:49
[2017-01-06] MEDS ORDERED: oxyCODONE/ACETAMINOPHEN 5 MG/325 MG TAB PO PRN (18:45)
[2017-01-06] MEDS ORDERED: ATORVASTATIN 10 MG TAB PO SCH (21:00)
[2017-01-07] VITALS (8 sets, daily range): BP systolic 157–196; BP diastolic 74–95; PULSE 68–99; RESP 16–20; TEMP 95.7–98.8; O2SAT 96–99
[2017-01-07] MEDS: LEVOTHYROXINE SODIUM 125 MCG TAB PO SCH (05:51)
[2017-01-07] MEDS: INSULIN ASPART SUPPLEMENTAL SCALE SQ SCH ×4 (06:34→21:00)
[2017-01-07 08:30] LABS: HEMATOCRIT 25.5 % (35.0-46.0); MEAN CELL VOLUME 109.3 FL (80.0-100.0); MEAN CORPUSCULAR HEMOGLOBIN 37.3 PG (27.0-34.0); MEAN CORPUSCULAR HGB CONC 34.1 % (32.0-36.0); PLATELET COUNT 65 TH/MM3 (150-450); RED BLOOD COUNT 2.34 MIL/MM3 (4.00-5.30)
[2017-01-07 08:32] LABS: REVIEW FLAG FINAL
[2017-01-07 08:52] LABS: BICARBONATE 27.8 MEQ/L (21.0-32.0); POTASSIUM 3.5 MEQ/L (3.5-5.1)
[2017-01-07] MEDS: SODIUM CHLORIDE 0.9% FLUSH 5 ML FLUSH IV FLUSH SCH ×2 (09:00→21:00)
--- NOTE | 2017-01-07 09:22 | HHI.FPPN ---
Subjective Remarks Patient seen and examined this morning. Temperature 95.8, pulse 83, respiratory rate 16, blood pressure 178/84, pulse ox 98. Patient reports that she's doing okay this morning though she still feels weak. Explained her that we are waiting for neurology's final recommendations. MRI of the spine showed mild degenerative changes, but no spinal stenosis. Neurology is considering doing an LP, explained this to the patient that she will further discuss it with neurology. Endorses: Extremities weakness Denies: Fever, chills, nausea, vomiting, shortness of breath, chest pain, headache, abdominal pain, calf pain (Toi Hayward MD R2) Objective Vitals Vital Signs Date Time Temp Pulse Resp B/P Pulse Ox O2 Delivery O2 Flow Rate FiO2 01/07/17 08:00 95.8 83 16 178/84 98 01/07/17 04:00 96.7 76 20 157/95 98 01/07/17 03:47 70 01/07/17 00:00 95.7 76 18 165/79 98 01/06/17 22:07 98 01/06/17 20:00 98.3 81 20 165/82 98 01/06/17 18:42 96 21 01/06/17 16:14 96.7 82 22 189/81 99 01/06/17 13:22 84 01/06/17 12:40 98.0 81 21 185/81 100 I/O 01/06/17 01/06/17 01/06/17 01/07/17 01/07/17 01/07/17 07:00 15:00 23:00 07:00 15:00 23:00 Intake Total 690 ml 240 ml 240 ml 1120 ml Balance 690 ml 240 ml 240 ml 1120 ml Intake Oral 690 ml 240 ml 240 ml IV Total 1120 ml # Voids 2 3 0 # Bowel Movements 0 0 (Toi Hayward MD R2) Result Diagram: 01/07/17 0742 01/07/17 0742 Imaging Last Impressions Head Magnetic Resonance Angiography 01/06/17 0948 Signed Impressions: Service Date/Time: Friday, January 06, 2017 10:37 - CONCLUSION: No acute intracranial vascular abnormality is identified. Benji Rogers MD Cervical Spine MRI 01/06/17 0000 Signed Impressions: Service Date/Time: Friday, January 06, 2017 10:37 - CONCLUSION: Mild degenerative change of the cervical spine with degenerative disc disease at C3-C4 through C6-C7. However, no spinal canal stenosis is visualized. There is mild right neural foraminal narrowing at C4-C5. Benji Rogers MD Brain MRI 01/05/178 Signed Impressions: Service Date/Time: Thursday, January 05, 2017 23:32 - CONCLUSION: Mild atrophic change. No evidence of acute stroke, mass, mass effect or evidence of any hemorrhage. The diffusion weighted sequences are normal i.e. no acute stroke Cm Lopez MD Lower Extremity Ultrasound 01/05/171838 Signed Impressions: Service Date/Time: Thursday, January 05, 2017 20:20 - CONCLUSION: 1. No DVT. 2. 4 cm Infante's cyst. Tyrone Alarcon Jr., MD Head CT 01/05/171838 Signed Impressions: Service Date/Time: Thursday, January 05, 2017 19:02 - CONCLUSION: No acute disease. Tyrone Alarcon Jr., MD Chest X-Ray 01/05/171838 Signed Impressions: Service Date/Time: Thursday, January 05, 2017 19:12 - CONCLUSION: No acute disease. Tyrone Alarcon Jr., MD Carotid Artery Ultrasound 01/05/17 0000 Signed Impressions: Service Date/Time: Thursday, January 05, 2017 22:41 - CONCLUSION: Normal examination. Cm Lopez MD Objective Remarks O. CONSTITUTIONAL/GEN: normally nourished, in NAD. EYES: conjunctiva normal, PERRLA, EOMI. ENT: Mouth and pharynx normal. NECK: thyroid midline, carotids symmetrical. LUNGS: clear A-P, respiratory effort is normal. CARDIOVASCULAR: RR without murmur or gallop. No significant edema. GI/ABD: soft without masses, without organomegaly. NEURO: weakness of the left orbicularis oculi muscle. Some mild weakness of the left forehead, but not a complete palsy. No motor weakness of left arm or leg noted on bedside testing. SKIN: color normal, no rashes noted. Alopecia. HEME/LYMPH: no bruising, petechia or significant adenopathy MUSC: back is normal in appearance. Extremities are normal in appearance. PSYCH/MENTAL STATUS: Alert and oriented x 3. Medications and IVs Current Medications Medications (Trade) Dose Ordered Sig/Last Route Start Time Stop Time Status Last Admin (NS Flush) 2 ml BID IV FLUSH 01/06/17 09:00 01/07/17 09:00 (NS Flush) 2 ml UNSCH PRN IV FLUSH 01/05/17 22:15 (NovoLOG SUPPLEMENTAL SCALE) 1 ACHS SQ 01/06/17 07:00 (D50w (Vial) Inj) 50 ml UNSCH PRN IV PUSH 01/05/17 22:15 (Glucagon Inj) 1 mg UNSCH PRN OTHER 01/05/17 22:15 (Tylenol) 650 mg Q4H PRN PO 01/05/17 22:30 01/06/17 14:33 (Zofran Inj) 4 mg Q6H PRN IV 01/05/17 22:30 Levothyroxine Sodium 125 mcg 125 mcg DAILY@06 PO 01/06/17 06:00 01/07/17 05:51 (NS 1000 ml Inj) 1,000 ml @ 75 mls/hr [id number] IV 01/06/17 09:48 01/06/17 23:08 (Toi Hayward MD R2) A/P Assessment and Plan 76 y/o female with history of renal cancer presents with left facial droop. Possible ischemic stroke vs Lindsey's palsy. Will admit for stroke workup. wdw: Dr. Diaz Discharge Planning Pending neurology's recommendations (Toi Hayward MD R2) Attending Attestation Case reviewed and discussed with the resident team. Agree with plan of care as discussed with me and documented in the resident note. (Marito Diaz MD) Problem List: (1) Facial droop Status: Acute Plan: Symptoms first began over 24 hours ago. Vascular risk factors include age , history of smoking, cancer. DDx: Ischemic CVA, Lindsey's palsy, metabolic abnormality, metastasis Pertinant PE findings include: Left forehead and eyelid droop. Otherwise, cranial nerves intact. Strength and sensation is equal bilaterally -Neurology consulted, recommendations appreciated -Start Aspirin 325mg daily -Neuro checks q4 hrs. -Telemetry -Consult PT: No physical therapy needed outside of hospital (2) Renal cancer Status: Acute Plan: History of right-sided renal cancer. Unsure of pathology. Patient is status post 6 chemotherapy treatments. Patient states she wishes notified of her remission last week. CBC abnormalities most likely related to chemotherapy. -Continue to monitor (3) FEN Status: Acute Plan: Fluids: Adequate oral intake Electrolytes: wnl, continue to monitor Nutrition: Heart healthy diet DVT ppx: lovenox, SCDs Hypothyroidism - continue Synthroid. TSH pending (Toi Hayward MD R2) Problem Qualifiers (1) Renal cancer: Qualified Code: C64.1 - Renal cancer, right Toi Hayward MD R2 January 07, 2017 09:22 Marito Diaz MD January 08, 2017 12:21
--- NOTE | 2017-01-07 09:48 | HHI.PR ---
Subjective Remarks no new co Objective Vital Signs Date Time Temp Pulse Resp B/P Pulse Ox O2 Delivery O2 Flow Rate FiO2 01/07/17 08:00 95.8 83 16 178/84 98 01/07/17 04:00 96.7 76 20 157/95 98 01/07/17 03:47 70 01/07/17 00:00 95.7 76 18 165/79 98 01/06/17 22:07 98 01/06/17 20:00 98.3 81 20 165/82 98 01/06/17 18:42 96 21 01/06/17 16:14 96.7 82 22 189/81 99 01/06/17 13:22 84 01/06/17 12:40 98.0 81 21 185/81 100 I/O 01/06/17 01/06/17 01/06/17 01/07/17 01/07/17 01/07/17 07:00 15:00 23:00 07:00 15:00 23:00 Intake Total 690 ml 240 ml 240 ml 1120 ml Balance 690 ml 240 ml 240 ml 1120 ml Intake Oral 690 ml 240 ml 240 ml IV Total 1120 ml # Voids 2 3 0 # Bowel Movements 0 0 Result Diagram: 01/07/17 0742 01/07/17 0742 Objective Remarks more complete left 3rd nerve palsy today pupil spared still weak bilat finger ext Assessment and Plan Assessment and Plan imp left 3 nerve palsy mri c spine neg labs neg mra cow nl await LP emg needed in office after LP can dc asa 81 a day unless is positive csf Mohit Urbano MD January 07, 2017 09:47
[2017-01-07] MEDS: SODIUM CHLOR 0.9% 1000 ML INJ 1,000 ML IV SCH (12:28)
--- NOTE | 2017-01-07 17:22 | EC ---
Study Study Date:01/07/2017 STUDY CONCLUSIONS SUMMARY - Procedure narrative: Transthoracic echocardiography. Image quality was good. Scanning was performed from the parasternal, apical, and subcostal acoustic windows. - Left ventricle: The cavity size was normal. Wall thickness was normal. Systolic function was normal. The estimated ejection fraction was in the range of 50% to 55%. Wall motion was normal; there were no regional wall motion abnormalities. - Mitral valve: Mildly calcified annulus. Trace to mild regurgitation. - Tricuspid valve: Trace regurgitation. If LV function is below 40, please consider prescribing an ACEI or ARB or document rationale for non-use. PROCEDURE DATA STUDY STATUS: Elective. Procedure: Transthoracic echocardiography. Image quality was good. Scanning was performed from the parasternal, apical, and subcostal acoustic windows. Study completion: The patient tolerated the procedure well. Transthoracic echocardiography. M-mode, complete 2D, complete spectral Doppler, and color Doppler. Height: Height: 62in. Weight: Weight: 131.7lb. Body mass index: BMI: 24.1kg/m^2. Body surface area: BSA: 1.6m^2. Patient status: Inpatient. CARDIAC ANATOMY LEFT VENTRICLE: The cavity size was normal. Wall thickness was normal. Systolic function was normal. The estimated ejection fraction was in the range of 50% to 55%. Wall motion was normal; there were no regional wall motion abnormalities. AORTIC VALVE: Trileaflet; normal thickness leaflets. Doppler: Transvalvular velocity was within the normal range. There was no stenosis. No regurgitation. AORTA: Aortic root: The aortic root was normal in size. MITRAL VALVE: Mildly calcified annulus. Doppler: Transvalvular velocity was within the normal range. There was no evidence for stenosis. Trace to mild regurgitation. LEFT ATRIUM: The atrium was normal in size. RIGHT VENTRICLE: The cavity size was normal. Wall thickness was normal. PULMONIC VALVE: Doppler: Transvalvular velocity was within the normal range. There was no evidence for stenosis. No regurgitation. TRICUSPID VALVE: Structurally normal valve. Doppler: Transvalvular velocity was within the normal range. Trace regurgitation. PULMONARY ARTERY: The main pulmonary artery was normal-sized. Systolic pressure was within the normal range. RIGHT ATRIUM: The atrium was normal in size. PERICARDIUM: There was no pericardial effusion. SYSTEMIC VEINS: Inferior vena cava: The vessel was normal in size. Patient weight: 131.7lb _Ejection fraction:_ 65-75% _Fractional shortening:_ 32% up to 5Kg 5-11.5Kg 11.6-22.9Kg 23-45Kg 45-57Kg Aortic Root 7-13 <17 13-22 17-27 17-27 LA diam 6-13 <23 24-38 33-47 37-40 RVID 10-17 7-15 7-15 7-18 8-17 LVIDd 12-22 <32 24-38 33-47 37-40 LVPW 2-4 3-6 5-7 6-8 7-8 IVS 2-4 3-6 5-7 6-8 7-8 BASIC MEASUREMENTS ADULT Normal Left ventricle LV internal dimension, ED, chordal level, 48.4 mm 43-52 PLAX LV internal dimension, ES, chordal level, 37.3 mm 23-38 PLAX Fractional shortening, chordal level, PLAX *23 % >29 LV posterior wall thickness, ED 8.63 mm IVS/LVPW ratio, ED *1.32 <1.3 Ventricular septum Septal thickness, ED 11.4 mm Aortic valve Leaflet separation 19 mm 15-26 Left atrium Anterior-posterior dimension 42 mm Anterior-posterior dimension index *2.63 cm/m^2 <2.2 Right ventricle RV internal dimension, ED, PLAX 20.2 mm 19-38 BASIC MEASUREMENTS ADULT Normal Aortic valve Leaflet separation 19 mm 15-26 Aorta Root diameter, ED 29 mm 20-37 DOPPLER MEASUREMENTS ADULT Normal Mitral valve Peak E-wave velocity 48.9 cm/s Peak A-wave velocity 91.8 cm/s Peak E/A ratio 0.5 Tricuspid valve Regurgitant peak velocity 219 cm/s Peak RV-RA gradient, S 19 mm Hg Maximal regurgitant velocity 219 cm/s LEGEND: Mean values are shown as u=mean value. Asterisk (*) logan values outside specified normal range. Prepared and signed by Slim Lobato [id number]
[2017-01-08] VITALS (7 sets, daily range): BP systolic 133–188; BP diastolic 65–85; PULSE 69–80; RESP 16–22; TEMP 96.1–98.7; O2SAT 95–98
[2017-01-08] MEDS: LEVOTHYROXINE SODIUM 125 MCG TAB PO SCH (05:23)
[2017-01-08] MEDS: INSULIN ASPART SUPPLEMENTAL SCALE SQ SCH ×4 (06:29→21:20)
[2017-01-08] MEDS: SODIUM CHLORIDE 0.9% FLUSH 5 ML FLUSH IV FLUSH SCH ×2 (09:00→21:00)
--- NOTE | 2017-01-08 09:01 | HHI.FPPN ---
Subjective Remarks Mrs. Solares is doing okay this morning except for left leg pain that she states is chronic and is better when she walks. She would like some pain medication to help her in the meantime. She continues to have trouble with her left eye not opening, but she can see with that eye if she manually opens up the eyelids. She states that she does not want a spinal tap procedure. She would like to leave the hospital to get on with her vacation. (Isa Whatley MD R1) Objective Vitals Vital Signs Date Time Temp Pulse Resp B/P Pulse Ox O2 Delivery O2 Flow Rate FiO2 01/08/17 08:15 97.9 77 18 188/85 97 01/08/17 04:00 97.8 79 16 165/72 95 01/08/17 00:00 98.7 78 20 161/69 97 01/07/17 20:00 98.8 99 16 162/74 97 01/07/17 14:54 95.7 86 20 177/79 99 01/07/17 12:13 97.1 97 20 196/91 96 01/07/17 09:45 68 I/O 01/07/17 01/07/17 01/07/17 01/08/17 01/08/17 01/08/17 07:00 15:00 23:00 07:00 15:00 23:00 Intake Total 1120 ml 240 ml Output Total 600 ml Balance 1120 ml -360 ml Intake Oral 240 ml IV Total 1120 ml Output Urine Total 600 ml # Voids 1 2 (Isa Whatley MD R1) Result Diagram: 01/07/17 0742 01/07/17 0742 Imaging Last 72 hours Impressions Head Magnetic Resonance Angiography 01/06/17 0948 Signed Impressions: Service Date/Time: Friday, January 06, 2017 10:37 - CONCLUSION: No acute intracranial vascular abnormality is identified. Benji Rogers MD Cervical Spine MRI 01/06/17 0000 Signed Impressions: Service Date/Time: Friday, January 06, 2017 10:37 - CONCLUSION: Mild degenerative change of the cervical spine with degenerative disc disease at C3-C4 through C6-C7. However, no spinal canal stenosis is visualized. There is mild right neural foraminal narrowing at C4-C5. Benji Rogers MD Brain MRI 01/05/17 2228 Signed Impressions: Service Date/Time: Thursday, January 05, 2017 23:32 - CONCLUSION: Mild atrophic change. No evidence of acute stroke, mass, mass effect or evidence of any hemorrhage. The diffusion weighted sequences are normal i.e. no acute stroke Cm Lopez MD Lower Extremity Ultrasound 01/05/171838 Signed Impressions: Service Date/Time: Thursday, January 05, 2017 20:20 - CONCLUSION: 1. No DVT. 2. 4 cm Infante's cyst. Tyrone Alarcon Jr., MD Head CT 01/05/171838 Signed Impressions: Service Date/Time: Thursday, January 05, 2017 19:02 - CONCLUSION: No acute disease. Tyrone Alarcon Jr., MD Chest X-Ray 01/05/171838 Signed Impressions: Service Date/Time: Thursday, January 05, 2017 19:12 - CONCLUSION: No acute disease. Tyrone Alarcon Jr., MD Objective Remarks O. CONSTITUTIONAL/GEN: normally nourished, in NAD. EYES: conjunctiva normal, PERRLA, EOMI. ENT: Mouth and pharynx normal. NECK: thyroid midline, carotids symmetrical. LUNGS: clear A-P, respiratory effort is normal. CARDIOVASCULAR: RR without murmur or gallop. No significant edema. GI/ABD: soft without masses, without organomegaly. NEURO: weakness of the left orbicularis oculi muscle. Some mild weakness of the left forehead, but not a complete palsy. SKIN: color normal, no rashes noted. Alopecia. HEME/LYMPH: no bruising, petechia or significant adenopathy MUSC: back is normal in appearance. Extremities are normal in appearance. PSYCH/MENTAL STATUS: Alert and oriented x 3. (Isa Whatley MD R1) A/P Assessment and Plan 76 y/o female with history of renal cancer presents with left facial droop. Possible ischemic stroke vs Lindsey's palsy. Admitted for stroke workup. Neurology was consulted to assist with management. wdw: Dr. Diaz Discharge Planning Pending neurology's recommendations, possible discharge today (Isa Whatley MD R1) Attending Attestation Case reviewed and discussed with the resident team. Agree with plan of care as discussed with me and documented in the resident note. 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 Vascular risk factors include age , history of smoking, cancer. DDx: Ischemic CVA, Lindsey's palsy, metabolic abnormality, metastasis Pertinent PE findings include: Left eyelid droop, vision intact in that eye -Neurology consulted, recommendations appreciated - plan for LP in hospital and EMG in office, discharge if LP is negative -MRI C-spine negative -MRA negative -Stop aspirin due to low platelets at 65 -Neuro checks q4 hrs. -Telemetry -Consult PT: No physical therapy needed outside of hospital (2) Hypertension Status: Acute Plan: BP ranging from 161/69-188/85 in the last 24 hours Patient not on any home antihypertensive medication Vasotec 1.25 mg IV PRN SPP greater than or equal to 170 or DBP greater than or equal to 100 (3) Renal cancer Status: Acute Plan: History of right-sided renal cancer. Unsure of pathology. Patient is status post 6 chemotherapy treatments. Patient states she was notified of her remission last week. CBC abnormalities most likely related to chemotherapy. -Continue to monitor (4) FEN Status: Acute Plan: Fluids: Adequate oral intake Electrolytes: wnl, continue to monitor Nutrition: Heart healthy diet DVT ppx: lovenox, SCDs Hypothyroidism - continue Synthroid. TSH within normal limits (Isa Whatley MD R1) Problem Qualifiers (1) Renal cancer: Qualified Code: C64.1 - Renal cancer, right Isa Whatley MD R1 January 08, 2017 09:01 Marito Diaz MD January 08, 2017 12:32
[2017-01-08] MEDS: SODIUM CHLOR 0.9% 1000 ML INJ 1,000 ML IV SCH ×2 (09:41→15:08)
[2017-01-08] MEDS: oxyCODONE/ACETAMINOPHEN 5 MG/325 MG TAB PO PRN ×2 (09:45→23:55)
--- NOTE | 2017-01-08 09:53 | HHI.PR ---
Subjective Remarks no new co Objective Vital Signs Date Time Temp Pulse Resp B/P Pulse Ox O2 Delivery O2 Flow Rate FiO2 01/08/17 08:15 97.9 77 18 188/85 97 01/08/17 04:00 97.8 79 16 165/72 95 01/08/17 00:00 98.7 78 20 161/69 97 01/07/17 20:00 98.8 99 16 162/74 97 01/07/17 14:54 95.7 86 20 177/79 99 01/07/17 12:13 97.1 97 20 196/91 96 I/O 01/07/17 01/07/17 01/07/17 01/08/17 01/08/17 01/08/17 07:00 15:00 23:00 07:00 15:00 23:00 Intake Total 1120 ml 240 ml Output Total 600 ml Balance 1120 ml -360 ml Intake Oral 240 ml IV Total 1120 ml Output Urine Total 600 ml # Voids 1 2 Result Diagram: 01/07/17 0742 01/07/17 0742 Objective Remarks more complete left 3rd nerve palsy today pupil spared no change overnoc still weak bilat finger ext nl gait Assessment and Plan Assessment and Plan imp left 3 nerve palsy mri c spine neg labs neg mra cow nl await LP emg needed in office after LP can dc unless is positive csf stable no asa as plt low Mohit Urbano MD January 08, 2017 09:53
[2017-01-08 10:32] LABS: HEMATOCRIT 28.5 % (35.0-46.0); MEAN CELL VOLUME 108.9 FL (80.0-100.0); MEAN CORPUSCULAR HEMOGLOBIN 37.9 PG (27.0-34.0); MEAN CORPUSCULAR HGB CONC 34.8 % (32.0-36.0); PLATELET COUNT 76 TH/MM3 (150-450); RED BLOOD COUNT 2.62 MIL/MM3 (4.00-5.30); RED CELL DISTRIBUTION WIDTH 22.9 % (11.6-17.2); WHITE BLOOD COUNT 2.6 TH/MM3 (4.0-11.0)
[2017-01-08 10:43] LABS: REVIEW FLAG FINAL
[2017-01-08 10:58] LABS: BICARBONATE 27.5 MEQ/L (21.0-32.0); POTASSIUM 3.3 MEQ/L (3.5-5.1)
[2017-01-08] MEDS ORDERED: POTASSIUM CHLORIDE 10 MEQ CONTROLLED RELEASE TAB PO ONE (11:15)
[2017-01-09] VITALS (7 sets, daily range): BP systolic 147–178; BP diastolic 67–76; PULSE 67–96; RESP 17–20; TEMP 96.4–96.8; O2SAT 94–98
[2017-01-09] MEDS: ENALAPRILAT 1.25 MG/ML VIAL IV PUSH PRN ×2 (03:12→07:59)
[2017-01-09] MEDS: SODIUM CHLOR 0.9% 1000 ML INJ 1,000 ML IV SCH (04:54)
[2017-01-09] MEDS: LEVOTHYROXINE SODIUM 125 MCG TAB PO SCH (06:08)
[2017-01-09] MEDS: INSULIN ASPART SUPPLEMENTAL SCALE SQ SCH ×2 (06:10→11:00)
[2017-01-09 07:09] LABS: HEMATOCRIT 30.1 % (35.0-46.0); MEAN CELL VOLUME 109.6 FL (80.0-100.0); MEAN CORPUSCULAR HEMOGLOBIN 37.7 PG (27.0-34.0); MEAN CORPUSCULAR HGB CONC 34.4 % (32.0-36.0); PLATELET COUNT 90 TH/MM3 (150-450); RED BLOOD COUNT 2.75 MIL/MM3 (4.00-5.30); RED CELL DISTRIBUTION WIDTH 22.9 % (11.6-17.2); WHITE BLOOD COUNT 3.2 TH/MM3 (4.0-11.0)
[2017-01-09 07:15] LABS: REVIEW FLAG FINAL
[2017-01-09 07:22] LABS: BICARBONATE 28.2 MEQ/L (21.0-32.0); POTASSIUM 3.7 MEQ/L (3.5-5.1)
[2017-01-09] MEDS: SODIUM CHLORIDE 0.9% FLUSH 5 ML FLUSH IV FLUSH SCH (08:00)
--- NOTE | 2017-01-09 08:26 | HHI.PR ---
Subjective Remarks no new co Objective Vital Signs Date Time Temp Pulse Resp B/P Pulse Ox O2 Delivery O2 Flow Rate FiO2 01/09/17 07:54 96.4 71 17 178/74 97 01/09/17 06:28 74 01/09/17 05:01 96.8 78 20 147/67 98 01/09/17 01:02 96.4 74 20 176/76 94 01/08/17 20:00 98.3 80 22 133/68 97 01/08/17 14:00 96.1 73 19 156/73 98 01/08/17 14:00 72 01/08/17 11:00 96.9 69 19 142/65 98 01/08/17 10:58 17 I/O 01/08/17 01/08/17 01/08/17 01/09/17 01/09/17 01/09/17 07:00 15:00 23:00 07:00 15:00 23:00 # Voids 5 4 # Bowel Movements 1 2 Result Diagram: 01/09/17 0632 01/09/17 0632 Objective Remarks more complete left 3rd nerve palsy today pupil spared no change overnoc 7th works well still weak bilat finger ext still nl gait Assessment and Plan Assessment and Plan imp left 3 nerve palsy mri c spine neg labs neg mra cow nl await LP emg needed in office after LP can dc unless is positive csf stable no asa as plt low sstable neuro may be able dc later today as above Mohit Urbano MD January 09, 2017 08:25
--- NOTE | 2017-01-09 08:50 | HHI.FPPN ---
Subjective Remarks Patient seen and examined this morning. Afebrile vital signs stable. Anticipate LP for today then discharged following lumbar puncture preliminary results. Patient is really wanting to get out of the hospital because she is here on vacation and will be leaving soon. She is going to wait until after the LP Endorses: Left eyelid weakness, left leg weakness Denies: Fever, chills, nausea, vomiting, shortness of breath, chest pain, headache, abdominal pain, calf pain (Toi Hayward MD R2) Objective Vitals Vital Signs Date Time Temp Pulse Resp B/P Pulse Ox O2 Delivery O2 Flow Rate FiO2 01/09/17 07:54 96.4 71 17 178/74 97 01/09/17 06:28 74 01/09/17 05:01 96.8 78 20 147/67 98 01/09/17 01:02 96.4 74 20 176/76 94 01/08/17 20:00 98.3 80 22 133/68 97 01/08/17 14:00 96.1 73 19 156/73 98 01/08/17 14:00 72 01/08/17 11:00 96.9 69 19 142/65 98 01/08/17 10:58 17 I/O 01/08/17 01/08/17 01/08/17 01/09/17 01/09/17 01/09/17 07:00 15:00 23:00 07:00 15:00 23:00 # Voids 5 4 # Bowel Movements 1 2 (Toi Hayward MD R2) Result Diagram: 01/09/17 0632 01/09/17 0632 Imaging Last Impressions Head Magnetic Resonance Angiography 01/06/17 0948 Signed Impressions: Service Date/Time: Friday, January 06, 2017 10:37 - CONCLUSION: No acute intracranial vascular abnormality is identified. Benji Rogres MD Cervical Spine MRI 01/06/17 0000 Signed Impressions: Service Date/Time: Friday, January 06, 2017 10:37 - CONCLUSION: Mild degenerative change of the cervical spine with degenerative disc disease at C3-C4 through C6-C7. However, no spinal canal stenosis is visualized. There is mild right neural foraminal narrowing at C4-C5. Benji Rogers MD Brain MRI 01/05/17 2228 Signed Impressions: Service Date/Time: Thursday, January 05, 2017 23:32 - CONCLUSION: Mild atrophic change. No evidence of acute stroke, mass, mass effect or evidence of any hemorrhage. The diffusion weighted sequences are normal i.e. no acute stroke Cm Lopez MD Lower Extremity Ultrasound 01/05/171838 Signed Impressions: Service Date/Time: Thursday, January 05, 2017 20:20 - CONCLUSION: 1. No DVT. 2. 4 cm Infante's cyst. Tyrone Alarcon Jr., MD Head CT 01/05/171838 Signed Impressions: Service Date/Time: Thursday, January 05, 2017 19:02 - CONCLUSION: No acute disease. Tyrone Alarcon Jr., MD Chest X-Ray 01/05/171838 Signed Impressions: Service Date/Time: Thursday, January 05, 2017 19:12 - CONCLUSION: No acute disease. Tyrone Alarcon Jr., MD Carotid Artery Ultrasound 01/05/17 0000 Signed Impressions: Service Date/Time: Thursday, January 05, 2017 22:41 - CONCLUSION: Normal examination. Cm Lopez MD Objective Remarks O. CONSTITUTIONAL/GEN: normally nourished, in NAD. EYES: conjunctiva normal, PERRLA, EOMI. ENT: Mouth and pharynx normal. NECK: thyroid midline, carotids symmetrical. LUNGS: clear A-P, respiratory effort is normal. CARDIOVASCULAR: RR without murmur or gallop. No significant edema. GI/ABD: soft without masses, without organomegaly. NEURO: weakness of the left orbicularis oculi muscle. Some mild weakness of the left forehead, but not a complete palsy. SKIN: color normal, no rashes noted. Alopecia. HEME/LYMPH: no bruising, petechia or significant adenopathy MUSC: back is normal in appearance. Extremities are normal in appearance. PSYCH/MENTAL STATUS: Alert and oriented x 3. Medications and IVs Current Medications Medications (Trade) Dose Ordered Sig/Last Route Start Time Stop Time Status Last Admin (NS Flush) 2 ml BID IV FLUSH 01/06/17 09:00 01/09/17 08:00 (NS Flush) 2 ml UNSCH PRN IV FLUSH 01/05/17 22:15 (NovoLOG SUPPLEMENTAL SCALE) 1 ACHS SQ 01/06/17 07:00 01/08/17 21:20 (D50w (Vial) Inj) 50 ml UNSCH PRN IV PUSH 01/05/17 22:15 (Glucagon Inj) 1 mg UNSCH PRN OTHER 01/05/17 22:15 (Tylenol) 650 mg Q4H PRN PO 01/05/17 22:30 01/06/17 14:33 (Zofran Inj) 4 mg Q6H PRN IV 01/05/17 22:30 Levothyroxine Sodium 125 mcg 125 mcg DAILY@06 PO 01/06/17 06:00 01/09/17 06:08 (NS 1000 ml Inj) 1,000 ml @ 75 mls/hr [id number] IV 01/06/17 09:48 01/09/17 04:54 (Percocet 5-325 Mg) 1 tab Q4H PRN PO 01/08/17 09:00 01/08/17 23:55 (Vasotec Inj) 1.25 mg Q6H PRN IV PUSH 01/08/17 11:30 01/09/17 07:59 (Toi Hayward MD R2) A/P Assessment and Plan 76 y/o female with history of renal cancer presents with left facial droop. Possible ischemic stroke vs Lindsey's palsy. Admitted for stroke workup. Neurology was consulted to assist with management. wdw: Dr. Diaz Discharge Planning Pending neurology's recommendations, anticipate discharge following LP (Toi Hayward MD R2) Attending Attestation Case reviewed and discussed with the resident team. Agree with plan of care as discussed with me and documented in the resident note. 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 Vascular risk factors include age , history of smoking, cancer. DDx: Ischemic CVA, Lindsey's palsy, metabolic abnormality, metastasis Pertinent PE findings include: Left eyelid droop, vision intact in that eye -Neurology consulted, recommendations appreciated - plan for LP in hospital and EMG in office, discharge if LP is negative -MRI C-spine negative -MRA negative -Stop aspirin due to low platelets at 65 -Neuro checks q4 hrs. -Telemetry -Consult PT: No physical therapy needed outside of hospital (2) Hypertension Status: Acute Plan: BP ranging from 161/69-188/85 in the last 24 hours Patient not on any home antihypertensive medication Vasotec 1.25 mg IV PRN SPP greater than or equal to 170 or DBP greater than or equal to 100 (3) Renal cancer Status: Acute Plan: History of right-sided renal cancer. Unsure of pathology. Patient is status post 6 chemotherapy treatments. Patient states she was notified of her remission last week. CBC abnormalities most likely related to chemotherapy. -Continue to monitor (4) FEN Status: Acute Plan: Fluids: Adequate oral intake Electrolytes: wnl, continue to monitor Nutrition: Heart healthy diet DVT ppx: lovenox, SCDs Hypothyroidism - continue Synthroid. TSH within normal limits (Toi Hayward MD R2) Problem Qualifiers (1) Renal cancer: Qualified Code: C64.1 - Renal cancer, right Toi Hayward MD R2 January 09, 2017 08:50 Marito Diaz MD January 09, 2017 15:24
--- NOTE | 2017-01-09 10:14 | PD.RAD ---
Post Procedure Progress Note Pre Procedure Diagnosis: (1) Facial droop (2) Cranial nerve III palsy Post Procedure Diagnosis: (1) Facial droop (2) Cranial nerve III palsy Procedure Date: January 09, 2017 Supervising Radiologist: Eddy Tolbert Proceduralist/Assist: Yandy Thomas, RT(R)(CV), Sondra Layton RT(R) Anesthesia: Local Plan of Activity Patient to Unit: Nursing Unit Patient Condition: Good See PACS Report for procedural detail/treatment Spinal Procedure Lumbar Puncture L3-L4 Fluid Removal (CCs): 20 Fluid Description: Clear Puncture Time: 09:37 Findings: OP: 9 cmH2O Eddy Tolbert MD January 09, 2017 10:14
[2017-01-09 11:10] LABS: RAPID PLASMA REAGIN SCREEN NON-REACTIVE (NON-REACTVE)
[2017-01-09 11:19] LABS: GROSS BLOOD TUBE #1 0 (0); GROSS BLOOD TUBE #2 0 (0); SUPERNATE COLOR TUBE #1 CLEAR (CLEAR); SUPERNATE COLOR TUBE #2 CLEAR (CLEAR); VOLUME TUBE # 2 4.8 ML; WBC TUBE #1 16 /MM3 (0-10)
[2017-01-09 11:20] LABS: GROSS BLOOD TUBE #3 0 (0); SUPERNATE COLOR TUBE #3 CLEAR (CLEAR); VOLUME TUBE # 3 4.8 ML
[2017-01-09 11:21] LABS: CSF LYMPHOCYTES 91 %; CSF MONOCYTES 8 %; CSF NEUTROPHILS 0 %; GROSS BLOOD TUBE #4 0 (0); SUPERNATE COLOR TUBE #4 CLEAR (CLEAR)
[2017-01-09 11:22] LABS: CSF LYMPHOCYTES 100 %; CSF NEUTROPHILS 0 %; GROSS BLOOD TUBE #4 0 (0); SUPERNATE COLOR TUBE #4 CLEAR (CLEAR); WBC TUBE #4 5 /MM3 (0-10)
[2017-01-09] MEDS: oxyCODONE/ACETAMINOPHEN 5 MG/325 MG TAB PO PRN (11:53)
--- NOTE | 2017-01-09 11:55 | HHI.DCPOC ---
Discharge Care Plan Diagnosis: (1) Left leg pain (2) Hypothyroidism (3) Cranial nerve III palsy (4) Hypertension Goals to Promote Your Health * To prevent worsening of your condition and complications * To maintain your health at the optimal level Directions to Meet Your Goals Take your medications as prescribed Follow your dietary instruction Follow activity as directed Keep your appointments as scheduled Take your immunizations and boosters as scheduled If your symptoms worsen call your PCP, if no PCP go to Urgent Care Center or Emergency Room Smoking is Dangerous to Your Health. Avoid second hand smoke Call the 24-hour hour crisis hotline for domestic abuse at Isa Whatley MD R1 January 09, 2017 11:55
[2017-01-09] MEDS ORDERED: POTASSIUM CHLORIDE 10 MEQ CONTROLLED RELEASE TAB PO ONE (13:00)
--- NOTE | 2017-01-09 13:07 | RADRPT ---
EXAM DATE/TIME: 01/09/2017 09:58 [facility] COMPARISON: No previous studies available for comparison. INDICATIONS : Patient presents with left sided weakness and possible Lindsey's palsy in need of lumbar puncture. MEDICAL HISTORY : Hypothyroidism, Right sided renal cancer, Chemotherapy, Left leg DVT SURGICAL HISTORY : Cataract surgery, IVC filter placement ENCOUNTER: Initial ACUITY: 4 - 6 days PAIN SCORE: 0/10 LUMBAR PUNCTURE TIME: 0937 hours FLUORO TIME: 0.2 minutes IMAGE SERIES: 0 ACCESS LEVEL: L3-4 OPENING PRESSURE: 9 cm of water CLOSING PRESSURE: Not requested. FLUID: 20 cc of clear CSF was collected and sent to the laboratory for analysis. PROCEDURE : 1. Fluoroscopic guided lumbar puncture. 2. Recording of opening pressure. The risks, benefits and alternatives to the procedure were explained and verbal and written consent w as obtained. The site was prepped in sterile fashion. Full sterile technique was used, including ca p, mask, sterile gloves and gown and a large sterile sheet. Hand hygiene and 2% chlorhexidine and/or betadine/alcohol prep was utilized per protocol for cutaneous antisepsis. The skin and subcutaneous tissues were infiltrated with local anesthetic solution. With fluoroscopic guidance the lumbar thecal sac was punctured at the above level described above and the opening pressure was recorded. The above described fluid was removed without difficulty. The patient tolerated the procedure well and there were no complications. CONCLUSION: Uncomplicated fluoroscopically guided lumbar puncture with pressures as above. Garfield Doherty MD on January 09, 2017 at 13:05 Board Certified Radiologist. This report was verified electronically.
--- NOTE | 2017-01-09 14:59 | HHI.DS ---
Discharge Summary Admission Date January 05, 2017 at 21:31 Discharge Date: January 09, 2017 Admitting Diagnosis ischemic CVA (1) Cranial nerve III palsy Diagnosis: Principal Plan: Symptoms first began over 24 hours ago. Vascular risk factors include age , history of smoking, cancer. DDx: Ischemic CVA, Lindsey's palsy, metabolic abnormality, metastasis Pertinent PE findings include: Left eyelid droop, vision intact in that eye -Neurology consulted, recommendations appreciated - plan for LP in hospital and EMG in office, discharge if LP is negative -MRI C-spine negative -MRA negative -Stop aspirin due to low platelets at 65 -Neuro checks q4 hrs. -Telemetry -Consult PT: No physical therapy needed outside of hospital (2) Hypertension Diagnosis: Secondary Plan: BP ranging from 161/69-188/85 in the last 24 hours Patient not on any home antihypertensive medication Vasotec 1.25 mg IV PRN SPP greater than or equal to 170 or DBP greater than or equal to 100 (3) Renal cancer Diagnosis: Secondary Plan: History of right-sided renal cancer. Unsure of pathology. Patient is status post 6 chemotherapy treatments. Patient states she was notified of her remission last week. CBC abnormalities most likely related to chemotherapy. -Continue to monitor (4) FEN Diagnosis: Secondary Plan: Fluids: Adequate oral intake Electrolytes: wnl, continue to monitor Nutrition: Heart healthy diet DVT ppx: lovenox, SCDs Hypothyroidism - continue Synthroid. TSH within normal limits [facility] Neu[facility] Procedures Lumbar puncture Brief History 76 y/o female with history of renal cancer and hypothyroidism presents with left facial droop. Pt lives in [place] and was flying here to visit a friend yesterday evening. She states towards the end of the flight, she was going to read, but noticed that she had difficulty seeing. When she landed, she noticed that her left eyelid was drooping as well as her forehead. This occurred around 6 or 7 PM last night. She endorses some achiness on her left eye after moving around. But no eye pain. He can also noticed some weakness and achiness in her left arm. She's been having some left leg pain off and on, but that has been going on for a couple weeks. He also had a history of numbness/ tingling in her toes and fingers that has been going on for a couple weeks as well. She denies any problems with walking. Denies any headaches. Currently, her left eyelid is over her left eye and she states she is unable to see. If she lifts her left eyelid up, she is able to see normally. No blurry vision. No trouble with speech. History of stroke or TIA symptoms in the past. Not lose consciousness. Denies any recent illnesses, fever/chills. No history of tick exposure. Denies any history of A. fib or heart disease. Does have a history of hypothyroidism. Had some vomiting this morning after eating food, since and has not had much of an appetite has been sleeping most of the day. Does have a history of renal cancer on the right side, unsure of the name of it. She is status post 6 chemotherapy treatments, no radiation. Patient states she had just received remission status last week per CBC/BMP: 01/09/17 0632 01/09/17 0632 Significant Findings Laboratory Tests Test 01/07/17 01/08/17 01/09/17 01/09/17 07:42 09:59 06:32 09:37 Red Blood Count 2.34 MIL/MM3 2.62 MIL/MM3 2.75 MIL/MM3 (4.00-5.30) (4.00-5.30) (4.00-5.30) Hemoglobin 8.7 GM/DL 9.9 GM/DL 10.4 GM/DL (11.6-15.3) (11.6-15.3) (11.6-15.3) Hematocrit 25.5 % 28.5 % 30.1 % (35.0-46.0) (35.0-46.0) (35.0-46.0) Mean Corpuscular Volume 109.3 FL 108.9 FL 109.6 FL (80.0-100.0) (80.0-100.0) (80.0-100.0) Mean Corpuscular Hemoglobin 37.3 PG 37.9 PG 37.7 PG (27.0-34.0) (27.0-34.0) (27.0-34.0) Red Cell Distribution Width 23.0 % 22.9 % 22.9 % (11.6-17.2) (11.6-17.2) (11.6-17.2) Platelet Count 65 TH/MM3 76 TH/MM3 90 TH/MM3 (150-450) (150-450) (150-450) Creatinine 0.43 MG/DL (0.50-1.00) White Blood Count 2.6 TH/MM3 3.2 TH/MM3 (4.0-11.0) (4.0-11.0) Potassium Level 3.3 MEQ/L (3.5-5.1) Estimat Glomerular Filtration 87 ML/MIN (>89) Rate CSF WBC (Tube 1) 16 /MM3 (0-10) CSF Total Protein 56.0 MG/DL (15.0-45.0) Imaging Last Impressions Lumbar Puncture Fluoroscopy 01/09/17 0000 Signed Impressions: Service Date/Time: Monday, January 09, 2017 09:58 - CONCLUSION: Uncomplicated fluoroscopically guided lumbar puncture with pressures as above. Garfield Doherty MD Head Magnetic Resonance Angiography 01/06/17 0948 Signed Impressions: Service Date/Time: Friday, January 06, 2017 10:37 - CONCLUSION: No acute intracranial vascular abnormality is identified. Benji Rogers MD Cervical Spine MRI 01/06/17 0000 Signed Impressions: Service Date/Time: Friday, January 06, 2017 10:37 - CONCLUSION: Mild degenerative change of the cervical spine with degenerative disc disease at C3-C4 through C6-C7. However, no spinal canal stenosis is visualized. There is mild right neural foraminal narrowing at C4-C5. Benji Rogers MD Brain MRI 01/05/17 2228 Signed Impressions: Service Date/Time: Thursday, January 05, 2017 23:32 - CONCLUSION: Mild atrophic change. No evidence of acute stroke, mass, mass effect or evidence of any hemorrhage. The diffusion weighted sequences are normal i.e. no acute stroke Cm Lopez MD Lower Extremity Ultrasound 01/05/171838 Signed Impressions: Service Date/Time: Thursday, January 05, 2017 20:20 - CONCLUSION: 1. No DVT. 2. 4 cm Infante's cyst. Tyrone Alarcon Jr., MD Head CT 01/05/171838 Signed Impressions: Service Date/Time: Thursday, January 05, 2017 19:02 - CONCLUSION: No acute disease. Tyrone Alarcon Jr., MD Chest X-Ray 5/26/17 1839 Signed Impressions: Service Date/Time: Thursday, January 05, 2017 19:12 - CONCLUSION: No acute disease. Tyrone Alarcon Jr., MD Carotid Artery Ultrasound 01/05/17 0000 Signed Impressions: Service Date/Time: Thursday, January 05, 2017 22:41 - CONCLUSION: Normal examination. Cm Lopez MD PE at Discharge O. CONSTITUTIONAL/GEN: normally nourished, in NAD. EYES: conjunctiva normal, PERRLA, EOMI. ENT: Mouth and pharynx normal. NECK: thyroid midline, carotids symmetrical. LUNGS: clear A-P, respiratory effort is normal. CARDIOVASCULAR: RR without murmur or gallop. No significant edema. GI/ABD: soft without masses, without organomegaly. NEURO: weakness of the left orbicularis oculi muscle. Some mild weakness of the left forehead, but not a complete palsy. SKIN: color normal, no rashes noted. Alopecia. HEME/LYMPH: no bruising, petechia or significant adenopathy MUSC: back is normal in appearance. Extremities are normal in appearance. PSYCH/MENTAL STATUS: Alert and oriented x 3. Hospital Course Patient was admitted on 01/05/17 for questionable ischemic CVA versus bells palsy. She just completed chemotherapy and had left for vacation and during the flight to [place] she felt weakness in her left leg and arm as well as facial droop of the left side of her face. MRI workup was performed and no sign of stroke was seen. LP was performed and no sign of severe infection was seen. Concern for possible metastasis but none was seen on MRI. Patient wished to leave the hospital after the LP was done and will follow up with her PCP and a new neurologist back home. It was felt that she was stable enough to be discharged so she and will follow up with her physicians in [place]. She reported improvement of the weakness in her left arm and leg. And only mild improvement of the facial paralysis of the left side. Pt Condition on Discharge: Stable Discharge Disposition: Discharge Home Discharge Instructions DIET: Follow Instructions for: As Tolerated, No Restrictions Activities you can perform: Regular-No Restrictions Follow up Referrals: Neurology - 2 Weeks PCP Follow-up - 1 Week Continued Medications: Levothyroxine (Synthroid) 125 Mcg Tab 125 MCG PO DAILY Thyroid #30 Ref 0 TAB Toi Hayward MD R2 January 09, 2017 14:59
[2017-01-09] MEDS ORDERED: OXYC1TAB63 PO (15:56)
[2017-01-10 16:48] LABS: LYME IGG IMMUNOBLOT CSF None Detected bands (None Detected); LYME IGM IMMUNOBLOT CSF None Detected bands (None Detected)
[2017-01-10 17:48] LABS: ANA SCREEN NEG (NEG)
[2017-01-11 19:52] LABS: VDRL CSF NON-REACTIVE (())
[2017-01-12 10:20] LABS: CSF CRYPTOCOCCUS AG CONF ND (NOT DETECTD)
== END 2017-01-09 16:43 | disposition home or self-care (01) | DRG 123 ==
LOC: NEPC 18:02 → NEDA 21:31 → N05A 01-06 00:11
PROVIDERS: ADMIT Family Medicine; ATTEND Family Medicine
PROC: 009U3ZX Drainage of Spinal Canal, Percutaneous Approach, Diagnostic (ICD-10-PCS; principal; 2017-01-09)
DX: H49.02 Third [oculomotor] nerve palsy, left eye (principal); D69.6 Thrombocytopenia, unspecified; I10 Essential (primary) hypertension; E03.9 Hypothyroidism, unspecified; M79.605 Pain in left leg; Z85.528 Personal history of other malignant neoplasm of kidney; Z86.718 Personal history of other venous thrombosis and embolism; Z92.21 Personal history of antineoplastic chemotherapy; Z86.73 Personal history of transient ischemic attack (TIA), and cerebral infarction without residual deficits; Z80.49 Family history of malignant neoplasm of other genital organs; Z80.1 Family history of malignant neoplasm of trachea, bronchus and lung; Z83.3 Family history of diabetes mellitus; Z87.891 Personal history of nicotine dependence; T45.1X5A Adverse effect of antineoplastic and immunosuppressive drugs, initial encounter
CPT/HCPCS: 62270; 70450; 70544; 70553; 71010; 72156; 77003; 80048; 80053; 80061; 81001; 82550; 82607; 82945; 82948; 83036; 84157; 84425; 84439; 84443; 84450; 84460; 84484; 85025; 85027; 85610; 85652; 85730; 86038; 86140; 86403; 86430; 86592; 86618; 87015; 87070; 87086; 87102; 87116; 87205; 87206; 88112; 89051; 93005; 93306; 93880; 93971; 99285; A9579; J1650; J1815; J7030